=== PATIENT | male | born 1980 | race Caucasian/White ===

== ENCOUNTER 2016-10-09 17:46 | Inpatient (IN) | payer BC, OTHER ==
[~2016-10-09] VITALS: Ht 175.3 cm; Wt 85.0 kg
[~2016-10-09 17:46] MED LIST: DILTCD240 PO; LISI-360 PO; ZOCO40TA PO; ZYRT10TA3 PO
[2016-10-09 17:50] VITALS: BP 130/52; PULSE 84; RESP 16; TEMP 98.1; O2SAT 98
[2016-10-09] MEDS ORDERED: CARD240C6 PO (18:30)
[2016-10-09] MEDS ORDERED: LISI10TA3 PO (18:30)
[2016-10-09] MEDS ORDERED: ZOCO40TA PO (18:30)
[2016-10-09] MEDS ORDERED: METH18 PO (18:35)
[2016-10-09 18:36] LABS: AUTOMATED NEUTROPHIL # 4.8 TH/MM3 (1.8-7.7); BASOPHIL # 0.1 TH/MM3 (0-0.2); BASOPHIL % 0.8 % (0.0-2.0); EOSINOPHIL # 0.2 TH/MM3 (0-0.4); HEMATOCRIT 54.6 % (39.0-51.0); HEMO FLAGS DIFF FINAL; LYMPH % 37.7 % (9.0-44.0); LYMPHOCYTE # 3.3 TH/MM3 (1.0-4.8); MEAN CELL VOLUME 83.5 FL (80.0-100.0); MEAN CORPUSCULAR HEMOGLOBIN 28.1 PG (27.0-34.0); MEAN CORPUSCULAR HGB CONC 33.7 % (32.0-36.0); MONO % 5.4 % (0.0-8.0); NEUT % 54.1 % (16.0-70.0); PLATELET COUNT 331 TH/MM3 (150-450); RED BLOOD COUNT 6.54 MIL/MM3 (4.50-5.90); RED CELL DISTRIBUTION WIDTH 13.4 % (11.6-17.2); WHITE BLOOD COUNT 8.8 TH/MM3 (4.0-11.0)
[2016-10-09 18:40] LABS: AMPHETAMINE, URINE NEG (NEG); BARBITURATES, URINE NEG (NEG); COCAINE, URINE NEG (NEG)
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
[2016-10-09] MEDS ORDERED: METHOCARBAMOL 500 MG TAB PO ONE (18:45)
[2016-10-09] MEDS ORDERED: IBUPROFEN 600 MG TAB PO ONE (18:45)
[2016-10-09 18:55] LABS: ANION GAP 12 MEQ/L (5-15); AST (GOT) 33 U/L (15-37); BICARBONATE 20.7 MEQ/L (21.0-32.0); BLOOD UREA NITROGEN 8 MG/DL (7-18); CHLORIDE 108 MEQ/L (98-107); GLOMERULAR FILTRATION RATE 78 ML/MIN (>89); SODIUM (NA) 141 MEQ/L (136-145)
[2016-10-09 18:58] LABS: ALKALINE PHOSPHATASE 82 U/L (45-117); ALT (GPT) 83 U/L (12-78); TOTAL BILIRUBIN ADULT 0.3 MG/DL (0.2-1.0)
[2016-10-09] MEDS ORDERED: HYDR-3516 PO (19:03)
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
[2016-10-09 19:25] VITALS: BP 117/78; PULSE 98; RESP 16; O2SAT 96
[2016-10-09 22:41] VITALS: BP 135/66; PULSE 100; RESP 16; TEMP 98.5; O2SAT 97
[2016-10-10 02:59] VITALS: BP 127/82; PULSE 123; RESP 18; O2SAT 97
[2016-10-10 06:21] VITALS: BP 169/93; PULSE 125; RESP 18; O2SAT 98
[2016-10-10 10:14] VITALS: BP 139/97; PULSE 100; RESP 20; O2SAT 97
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
--- NOTE | 2016-10-10 13:32 | EKG ---
Date Performed: 10/09/2016 Time Performed: 19:18:18 PTAGE: 36 years EKG: SINUS TACHYCARDIA Normal EKG except for the sinus tachycardia Compared to previous tracing, sinus tachycardia is new. ABNORMAL RHYTHM ECG PREVIOUS TRACING : 01/05/2010 15:30.34 DOCTOR: Tiesha Ceron Interpretating Date/Time 10/10/2016 13:30:18
[2016-10-10] MEDS ORDERED: MAGNESIUM HYDROXIDE SUSP 30 ML CUP PO PRN (13:45)
[2016-10-10] MEDS ORDERED: ALUMINUM/MAGNESIUM/SIMETH 30 ML CUP PO PRN (13:45)
[2016-10-10] MEDS: LISINOPRIL 10 MG TAB PO SCH (14:25)
[2016-10-10] MEDS: DILTIAZEM-CD 240 MG CAP ER PO SCH (14:25)
[2016-10-10 14:30] VITALS: BP 150/100; PULSE 95; RESP 18
[2016-10-10] MEDS: ACETAMINOPHEN 325 MG TAB PO PRN (15:15)
[2016-10-10] MEDS ORDERED: IBUPROFEN 800 MG TAB PO PRN (17:30)
[2016-10-10] MEDS: NICOTINE 21 MG/24 HR PATCH T-DERMAL SCH (17:30)
[2016-10-10] MEDS ORDERED: PRAVASTATIN SOD 80 MG TAB PO PRN (21:00)
[2016-10-10] MEDS ORDERED: REMOVE OLD NICODERM (NICOTINE) PATCH T-DERMAL SCH (21:00)
[2016-10-11 05:00] VITALS: BP 117/76; PULSE 81; RESP 18; TEMP 97.9; O2SAT 97
[2016-10-11] MEDS: NICOTINE 21 MG/24 HR PATCH T-DERMAL SCH (08:20)
[2016-10-11] MEDS: LISINOPRIL 10 MG TAB PO SCH (08:20)
[2016-10-11] MEDS: DILTIAZEM-CD 240 MG CAP ER PO SCH (08:23)
[2016-10-11] MEDS: ACETAMINOPHEN 325 MG TAB PO PRN (09:52)
[2016-10-11 10:42] LABS: ANION GAP 7 MEQ/L (5-15); BICARBONATE 24.7 MEQ/L (21.0-32.0); BLOOD UREA NITROGEN 13 MG/DL (7-18); CHLORIDE 104 MEQ/L (98-107); GLOMERULAR FILTRATION RATE 99 ML/MIN (>89); HDL CHOLESTEROL 39.4 MG/DL (40.0-60.0); POTASSIUM 4.2 MEQ/L (3.5-5.1); SODIUM (NA) 136 MEQ/L (136-145)
[2016-10-11 11:17] LABS: HEMOGLOBIN A1b 1.5 %; HEMOGLOBIN Ao 86.4 %; HEMOGLOBIN P3 3.6 %
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
== END 2016-10-11 12:45 | disposition home or self-care (01) | DRG 882 ==
LOC: NEPD 17:46 → NEDA 10-10 13:41 → H260 10-10 15:32
PROVIDERS: ADMIT Psychiatry & Neurology Psychiatry; ATTEND Psychiatry & Neurology Psychiatry
DX: F43.23 Adjustment disorder with mixed anxiety and depressed mood (principal); F10.10 Alcohol abuse, uncomplicated; Y90.7 Blood alcohol level of 200-239 mg/100 ml; I10 Essential (primary) hypertension; G89.29 Other chronic pain; E78.00 Pure hypercholesterolemia, unspecified; F17.210 Nicotine dependence, cigarettes, uncomplicated; Z88.0 Allergy status to penicillin
CPT/HCPCS: 73030; 73564; 80048; 80053; 80061; 80307; 83036; 85025; 93005

== ENCOUNTER → 2017-06-04 | Outpatient (CLI) | payer OTHER ==
[~2017-06-04] MED LIST changes: +CARD240C6 PO; -DILTCD240 PO; +HYDR-3516 PO; -LISI-360 PO; +LISI10TA3 PO; +METH18 PO; -ZYRT10TA3 PO
[2017-06-04 07:07] LABS: HEMOGLOBIN 16.7 GM/DL (13.0-17.0); MEAN CELL VOLUME 84.3 FL (80.0-100.0); MEAN CORPUSCULAR HEMOGLOBIN 29.4 PG (27.0-34.0); MEAN CORPUSCULAR HGB CONC 34.9 % (32.0-36.0); MEAN PLATELET VOLUME 8.7 FL (7.0-11.0); PLATELET COUNT 235 TH/MM3 (150-450); RED BLOOD COUNT 5.69 MIL/MM3 (4.50-5.90); RED CELL DISTRIBUTION WIDTH 13.1 % (11.6-17.2); WHITE BLOOD COUNT 6.3 TH/MM3 (4.0-11.0)
[2017-06-04 07:27] LABS: ALT (GPT) 57 U/L (12-78); CHOLESTEROL 258 MG/DL (120-200); TRIGLYCERIDES 196 MG/DL (42-150)
[2017-06-04 07:29] LABS: ALBUMIN 4.3 GM/DL (3.4-5.0); AST (GOT) 20 U/L (15-37); BICARBONATE 26.1 MEQ/L (21.0-32.0); BLOOD UREA NITROGEN 19 MG/DL (7-18); CALCIUM 8.9 MG/DL (8.5-10.1); CHLORIDE 103 MEQ/L (98-107); CREATININE 1.01 MG/DL (0.60-1.30); GLOMERULAR FILTRATION RATE 85 ML/MIN (>89); GLUCOSE,FASTING 106 MG/DL (74-99); RHEUMATOID FACTOR SCREEN NEGATIVE (NEGATIVE); SODIUM (NA) 135 MEQ/L (136-145)
[2017-06-04 07:36] LABS: ALKALINE PHOSPHATASE 58 U/L (45-117); HDL CHOLESTEROL 35.3 MG/DL (40.0-60.0); LDL CHOLESTEROL 184 MG/DL (0-99); TOTAL BILIRUBIN ADULT 0.2 MG/DL (0.2-1.0); TOTAL PROTEIN 7.2 GM/DL (6.4-8.2)
[2017-06-04 08:16] LABS: WESTERGREN SEDIMENTATION RATE 1 mm/hr (0-15)
== END ==
LOC: CLAB 06:36
PROVIDERS: ATTEND Family Medicine
DX: M19.90 Unspecified osteoarthritis, unspecified site (principal)
CPT/HCPCS: 36415; 80053; 80061; 84443; 84550; 85027; 85652; 86038; 86430